=== PATIENT | female | born 1970 | race Caucasian/White ===

== ENCOUNTER 2018-08-31 18:18 | Emergency (ER) | payer BC, MEDICAID ==
[~2018-08-31] VITALS: Ht 165.1 cm; Wt 67.9 kg
[~2018-08-31 18:18] MED LIST: LORA1TAB PO
[2018-08-31 18:23] VITALS: Ht 165.1 cm; Wt 67.9 kg
--- NOTE | 2018-08-31 19:28 | ERD ---
ER Documentation Chief Complaint Chief Complaint R ELBOW, L WRIST PAIN X'S 1 WEEK HPI 48-year-old female, presents to the emergency department, complaining of right elbow and left wrist pain for 1 week after sustaining an injury while the patient was carrying a very heavy shopping cart. The pain is dull, constant, 5/10. No medications taken at this time for pain. No history of trauma. No rashes, no fever, no distal weakness, numbness or tingling. ROS All systems reviewed and are negative except as per history of present illness. Medications Home Meds Active Scripts Acetaminophen* (Tylenol*) 325 Mg Tablet, 2 TAB PO Q6 PRN for PAIN AND OR ELEVATED TEMP, #20 TAB Prov:CE MELO MD 08/31/18 Prednisone* (Prednisone*) 20 Mg Tab, 60 MG PO DAILY for 5 Days, TAB Prov:CE MELO MD 08/31/18 Lorazepam* (Lorazepam*) 1 Mg Tablet, 1 MG PO Q8H PRN for ANXIETY, #14 TAB Prov:SELIN DELGADO 06/15/15 Allergies Allergies: Coded Allergies: No Known Allergy (Unverified , 06/14/15) PMhx/Soc Medical and Surgical Hx: pt denies Medical Hx, pt denies Surgical Hx History of Surgery: No Anesthesia Reaction: No Hx Neurological Disorder: No Hx Respiratory Disorders: No Hx Cardiac Disorders: No Hx Psychiatric Problems: No Hx Miscellaneous Medical Probl: No Hx Alcohol Use: No Hx Substance Use: No Hx Tobacco Use: No Smoking Status: Never smoker Physical Exam Vitals Vital Signs Date Temp Pulse Resp B/P (MAP) Pulse Ox O2 O2 Flow FiO2 Time Delivery Rate 08/31/18 98.5 84 18 127/63 97 18:23 (84) Physical Exam Const: No acute distress Head: Atraumatic Eyes: Normal Conjunctiva ENT: Normal External Ears, Nose and Mouth. Neck: Full range of motion. No meningismus. Resp: Clear to auscultation bilaterally Cardio: Regular rate and rhythm, no murmurs Abd: Soft, non tender, non distended. Normal bowel sounds Skin: No petechiae or rashes Back: No midline or flank tenderness Ext: Right elbow: Normal inspection, tenderness to palpation in the lateral epicondylar area, full range of motion, distal neurovascular exam intact. Left wrist: Normal inspection, full range of motion, no cyanosis, or edema Neur: Awake and alert Psych: Normal Mood and Affect Procedures/MDM No red flags. Differential diagnosis include but not limited to: Elbow sprain/strain, ligament injury, epicondylitis, gout, arthritis; low suspicion for fracture, dislocation, septic arthritis. Neurovascular exam grossly intact. no clinical findings suggestive of acute infectious process, no deformity, no rashes. Pertinent Data: X-rays: No fracture or dislocation Physical examination and clinical presentation consistent most likely with right elbow contusion and left wrist pain. Treatment options, results and clinical impression discussed with patient who agrees with management. The patient is stable to be treated outpatient and will be discharged home with recommendations for ice, rest and NSAIDs 3 times daily for 5 days and close monitoring. The patient was instructed to follow up with the primary care provider in the next 48h. If symptoms persist, worsen or new symptoms develop, then patient should return to the ED immediately. Instructions explained and given to patient with acknowledgment and demonstrated understanding. Disclaimer: Inadvertent spelling and grammatical errors are likely due to EHR/dictation software use and do not reflect on the overall quality of patient care. Also, please note that the electronic time recorded on this note does not necessarily reflect the actual time of the patient encounter. Departure Diagnosis: Primary Impression: Contusion of right elbow Additional Impression: Contusion of left wrist Condition: Stable Patient Instructions: Contusion, Elbow Additional Instructions: Muchas han por [facility] para sosa servicio. Esperamos que en sosa visita a la marguerite de emergencia sosa problema medico haya sido solucionado y que se sienta mucho mejor. Para estar seguros que sosa mejoria sigue en proceso, le pedimos el favor de hacer maurilio diana de seguimiento medico con sosa doctor primario en los proximos 2-4 del rio. Lleve con usted estos documentos y las medicinas recetadas. Si gus sintomas empeoran, NO SE ESPERE, por favor regrese a marguerite de emergencia INMEDIATAMENTE. En jose que usted no tenga un mdico de atencin primaria: Llame al mdico o clnica comunitaria de referencia que aparece abajo megha las horas de consultorio para hacer maurilio diana para que le vean. CLINICAS: [facility] [phone] [facility] [phone] [facility] [phone] [place] [phone] [place] [id number] [phone] [facility]. [phone] CE MCNAMARA MD Aug 31, 2018 19:28
[2018-08-31] MEDS ORDERED: ACET325T33 PO (21:03)
[2018-08-31] MEDS ORDERED: PRED20TA PO (21:03)
[2018-08-31 21:20] VITALS: BP 129/71; PULSE 70; RESP 20
== END 2018-08-31 21:26 | disposition home or self-care (01) ==
LOC: FTE 18:18
DX: S50.01XA Contusion of right elbow, initial encounter (principal); S60.212A Contusion of left wrist, initial encounter; X50.0XXA Overexertion from strenuous movement or load, initial encounter; Y92.9 Unspecified place or not applicable